=== PATIENT | male | born 1990 | race Caucasian/White ===

== ENCOUNTER 2018-08-22 15:32 | Outpatient (CLI) | payer BC ==
--- NOTE | 2018-08-22 17:38 | ULT ---
TESTICULAR ULTRASOUND: 08/22/18 HISTORY: Right testicular pain. COMPARISON: None. TECHNIQUE: Rodriguez scale, color flow, doppler imaging, with spectral waveform analysis performed in the left and ri ght testicle. FINDINGS: RIGHT TESTICLE: No evidence of a solid echotexture mass in the right testicle. Right testicle measures 2.4 x 4.7 x 2. 6 cm. Right epididymis measures 1.3 x 1.1 cm. 0.1 cm anechoic focus may represent a small epididymal cyst. No significant fluid in the right hemiscrotum. LEFT HEMISCROTUM: Left testicle has a homogeneous echotexture. No intratesticular mass. Left testicle measures 4.6 x 3. 0 x 2.2 cm. Left epididymis measures 1.0 x 1.0 cm. There are some vessels in the left hemiscrotum whi ch do not increase flow upon Valsalva. No significant fluid in the left hemiscrotum. TESTICULAR DOPPLER: Symmetric flow to the left and right testicle. IMPRESSION: Unremarkable testicular ultrasound. POS: ROSALIA
== END 2018-08-22 15:33 | disposition home or self-care (01) ==
LOC: SCSULT 15:32
PROVIDERS: ATTEND Internal Medicine
DX: N50.811 Right testicular pain (principal)
CPT/HCPCS: 76870; 93976

== ENCOUNTER 2018-11-17 15:49 | Outpatient (CLI) | payer BC ==
--- NOTE | 2018-11-17 16:42 | RAD ---
LUMBAR SPINE 2 VIEWS: Date: 11/17/18 HISTORY: Low back pain. FINDINGS: There are five lumbar-type vertebrae. Pedicles are intact. Vertebral body height and alignment are ma intained. No acute fracture or dislocation. IMPRESSION: Normal radiographic appearance of the lumbar spine. POS: ROSALIA
== END 2018-11-17 15:50 | disposition home or self-care (01) ==
LOC: SCSRAD 15:49
PROVIDERS: ATTEND Internal Medicine
DX: M54.5 Low back pain (principal); S39.92XA Unspecified injury of lower back, initial encounter
CPT/HCPCS: 72100

== ENCOUNTER 2019-01-19 20:30 | Outpatient (CLI) | payer BC | END 2019-01-19 20:31 | disposition home or self-care (01) | LOC: SLEEPLAB 20:30 | PROVIDERS: ATTEND Internal Medicine | DX: G47.33 Obstructive sleep apnea (adult) (pediatric) (principal); R06.83 Snoring; G47.31 Primary central sleep apnea | CPT/HCPCS: 95811 ==

== ENCOUNTER 2019-02-14 02:47 | Emergency (ER) | payer BC ==
[2019-02-14] MEDS ORDERED: Ketorolac Tromethamine 30 MG/ML VIAL ONE (03:12)
--- NOTE | 2019-02-14 04:11 | RAD ---
XR Knee Rt 4 View STANDARD HISTORY: Right knee pain COMPARISON: None. FINDINGS: There is no signs of any fracture or significant arthritic change. There is no joint effusi on is identified. IMPRESSION: Unremarkable right knee.
== END 2019-02-14 03:47 | disposition home or self-care (01) ==
LOC: SCSER 02:47
DX: M25.561 Pain in right knee (principal); F41.9 Anxiety disorder, unspecified; Z79.899 Other long term (current) drug therapy
CPT/HCPCS: 96372; J1885

== ENCOUNTER 2019-05-07 16:23 | Outpatient (CLI) | payer BC ==
--- NOTE | 2019-05-07 16:52 | RAD ---
EXAM: 3 views of the cervical spine HISTORY: Neck pain COMPARISON: None FINDINGS: AP, lateral, and open mouth odontoid views of the cervical spine shows normal height and al ignment of the vertebral bodies and intervertebral discs without fracture or subluxation. No degenerative changes are seen. No prevertebral soft tissue swelling is seen. IMPRESSION: No significant cervical spine abnormality.
== END 2019-05-07 16:24 | disposition home or self-care (01) ==
LOC: SCSRAD 16:23
PROVIDERS: ATTEND Internal Medicine
DX: M54.12 Radiculopathy, cervical region (principal)
CPT/HCPCS: 72040

== ENCOUNTER 2019-05-23 15:05 | Outpatient (CLI) | payer BC ==
--- NOTE | 2019-05-23 16:21 | MRI ---
MRI Lumbar Spine Noncontrast: HISTORY: Lumbar radiculopathy. Patient claims of low back pain which radiates down bilateral lower extremities . COMPARISON: None FINDINGS: There is likely an increased T2-weighted signal intensity lesion in the midportion left kidney which is including image an almost obscured. Retroperitoneal structures otherwise demonstrate a normal nonenhanced MRI appearance. Conus medullaris is normal in morphology and terminates at the L1 level. Normal signal intensity is demonstrated in the bone marrow. L1-2: There is no disc bulge or disc herniation. Central spinal canal and neural foramina are patent. L2-3: There is no disc bulge or disc herniation. Central spinal canal and neural foramina are patent. L3-4: There is no disc bulge or disc herniation. Central spinal canal and neural foramina are patent. L4-5: There is no disc bulge or disc herniation. Central spinal canal and neural foramina are patent. L5-S1: There is loss of intervertebral disc height. There is a central disc protrusion which encroach es on the traversing S1 nerve roots but does not appear to contact or displace the nerve roots. No significant narrowing of the thecal sac at this level. Neural foramina are patent. IMPRESSION: 1. Suggestion of incomplete visualization of a portion of a cystic lesion in the midportion left kidn ey. A renal sonogram is recommended for further evaluation. 2. Disc degenerative changes at the L5-S1 level. Central spinal canal and neural foramina are patent and all levels of the lumbar spine.
--- NOTE | 2019-05-23 16:53 | MRI ---
MRI Cervical spine without contrast: HISTORY: Cervical radiculopathy. Patient claims neck pain radiating into left shoulder. COMPARISON: None FINDINGS: The craniocervical junction is unremarkable. No significant cord signal abnormality. Paravertebral soft tissues have a normal appearance and normal signal intensity. Normal signal intensity is demonstrated in the bone marrow. C1-2:No significant stenosis. C2-3: There is no disc bulge or disc herniation. The central spinal canal and neural foramina are pat ent. C3-4: There is no disc bulge or disc herniation. The central spinal canal and neural foramina are pat ent. C4-5: There is a tiny central disc protrusion. Central spinal canal and neural foramina are patent. C5-6: There is a broad-based disc osteophyte complex which narrows the ventral subarachnoid space. Th ere is mild bilateral neural foraminal narrowing. C6-7: There is a small left paracentral disc protrusion which results in slight effacement of the lef t anterolateral aspect of the ventral subarachnoid space. There is no encroachment on the spinal cord. The neural foramina are patent. C7-T1: There is no disc bulge or disc herniation. The central spinal canal and neural foramina are pa tent. IMPRESSION: Disc degenerative changes at the C5-6 and to a lesser extent at the C4-5 and C6-7 levels. Mild centra l canal and bilateral neural foraminal narrowing is present at the C5-6 level. There is otherwise no significant narrowing of the central spinal canal or neural foramina at the remaining levels of th e cervical spine.
== END 2019-05-23 15:06 | disposition home or self-care (01) ==
LOC: SCSMRI 15:05
PROVIDERS: ATTEND Internal Medicine
DX: M50.122 Cervical disc disorder at C5-C6 level with radiculopathy (principal); M50.121 Cervical disc disorder at C4-C5 level with radiculopathy; M50.123 Cervical disc disorder at C6-C7 level with radiculopathy; M48.02 Spinal stenosis, cervical region; M51.17 Intervertebral disc disorders with radiculopathy, lumbosacral region
CPT/HCPCS: 72141; 72148

== ENCOUNTER 2019-05-30 15:12 | Outpatient (CLI) | payer BC ==
--- NOTE | 2019-05-30 16:41 | ULT ---
Exam: Bilateral renal ultrasound HISTORY: Left renal cyst noted on previous MRI COMPARISON: None FINDINGS: Right kidney: Normal cortical echotexture. No hydronephrosis. Right kidney measurements: 4.9 x 12.0 x 5 point cm. Left kidney: Hypoechoic focus with a linear echogenicity in the upper pole left kidney measuring 2.3 x 1.6 x 1.9 cm. Sonographic features are not consistent with a simple cyst. Incomplete interrogation. No hydronephrosis. Left kidney measurements 6.0 x 12.3 x 5.7 cm. Urinary bladder: Suboptimal evaluation of the urinary bladder due to recent voiding. IMPRESSION: 1. No hydronephrosis 2. Indeterminate lesion in the left kidney. Better interrogation with a renal mass protocol CT is rec ommended. Conversely, abdomen MRI performed CODE T
== END 2019-05-30 15:13 | disposition home or self-care (01) ==
LOC: SCSULT 15:12
PROVIDERS: ATTEND Internal Medicine
DX: N28.1 Cyst of kidney, acquired (principal)
CPT/HCPCS: 76770

== ENCOUNTER 2019-06-05 12:48 | Outpatient (CLI) | payer BC ==
[~2019-06-05 12:48] MED LIST: Iopamidol 300 61% 100 ML VIAL FS ONE
--- NOTE | 2019-06-05 14:11 | CT ---
Abdomen CT scan with and without IV contrast: HISTORY: Left renal lesion seen on prior MRI and ultrasound follow-up With and without contrast CT examination of the abdomen is performed with multiphase imaging. Lung bases are clear. Severe fatty changes of the liver. Some fatty sparing adjacent to the gallbladd er. Visualized pancreas, spleen, adrenal glands are unremarkable. Somewhat poorly circumscribed low-attenuation mass in the left kidney without evidence for abnormal enhancement with appearance theron t is consistent with that of a cyst. This measures approximately 2 x 2.6 cm in size. No renal hydronephrosis. No renal calculi IMPRESSION: Evidence for a cyst in the posterior lateral mid left kidney. Severe fatty changes of the liver with some fatty sparing adjacent to the gallbladder. No evidence for other significant acute process.
== END 2019-06-05 12:49 | disposition home or self-care (01) ==
LOC: SCSCT 12:48
PROVIDERS: ATTEND Internal Medicine
DX: N28.9 Disorder of kidney and ureter, unspecified (principal); N28.1 Cyst of kidney, acquired; K76.0 Fatty (change of) liver, not elsewhere classified; K82.8 Other specified diseases of gallbladder
CPT/HCPCS: 74170; Q9967